=== PATIENT | male | born 1965 | race Caucasian/White ===

== ENCOUNTER 2019-06-13 15:16 | Emergency (ER) | payer MEDICAID ==
[2019-06-13] MEDS: FLUORESCEIN STRIP RIGHT EYE ×2 (16:08)
[2019-06-13] MEDS: TETRACAINE 0.5% 4 ML OPH RIGHT EYE (16:08)
== END 2019-06-13 19:27 | disposition home or self-care (01) ==
LOC: FTE 15:16
DX: S05.01XA Injury of conjunctiva and corneal abrasion without foreign body, right eye, initial encounter (principal); W27.0XXA Contact with workbench tool, initial encounter; Y92.9 Unspecified place or not applicable
CPT/HCPCS: 70480; 76536; 99284-25